=== PATIENT | female | born 1980 | race Caucasian/White ===

== ENCOUNTER 2017-11-28 10:57 | Outpatient (RCR) | payer OTHER ==
[2017-11-15 09:20] VITALS: BP 144/108
[2017-11-15 09:39] LABS: PLATELET COUNT, AUTOMATED 201 K/uL (150-450)
[~2017-11-28 10:57] MED LIST: CALC-521 PO; DESO1TAB41 PO; LEVO200T44 PO; METO50TA19 PO; SERT-181 PO
[2017-11-28 11:01] VITALS: BP 147/95
--- NOTE | 2017-11-30 07:19 | [facility] ONCOLOGY NOTE ---
EVENT DATE: November 28, 2017 CHIEF COMPLAINT/REASON FOR VISIT The patient is a pleasant 37-year-old female with iron deficiency anemia as well as vitamin D deficiency here for followup. HISTORY OF PRESENT ILLNESS The patient returns. She had two doses of Injectafer in December 2016 due to iron malabsorption and poor tolerance of oral iron. With that she felt extremely well. She does have reasons for fatigue besides this, including a history of thyroid cancer surgery and replacement, vitamin D deficiency, depression, obstructive sleep apnea. She felt much better after the iron, as I believe it was the main contributor at that time. At this time, her ferritin is normal in the 60's, and I do not believe it is contributing significantly. Her vitamin D level is quite low at 22, and she has recently stopped supplementation for this. She plans to restart. No other new issues today. PAST MEDICAL/SURGICAL HISTORY 1. Postsurgical hypothyroidism. 2. Thyroid cancer, status post resection, cured in 2002. 3. Depression. 4. Severe iron deficiency anemia due to malabsorption. 5. Vitamin D deficiency. 6. Obstructive sleep apnea, on CPAP. SOCIAL HISTORY The patient has presented by herself. 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 FAMILY HISTORY Noncontributory. REVIEW OF SYSTEMS CONSTITUTIONAL: No fevers, chills, fatigue of concern. She does have some fatigue now, but her iron level is normal. HEENT: No headache or vision changes. CARDIOVASCULAR: No chest pain, dyspnea on exertion, edema. RESPIRATORY: No shortness of breath, wheeze, cough. GI: No nausea, vomiting. : No dysuria or hematuria. MUSCULOSKELETAL: No weakness or joint pain. PSYCHIATRIC: History of depression, may actually have been improved with the iron replacement. No anxiety of concern. SKIN: No concerning rashes or lesions. LYMPHATIC: No concerning lumps or bumps. NEUROLOGIC: No deficits. The remainder of the 14-point review of systems is otherwise negative. PHYSICAL EXAMINATION VITAL SIGNS: Blood pressure 147/95 with plans to follow up with Ms. Luu. Pulse 72, respiratory rate 18, temperature 97.5 Fahrenheit. Oxygen saturation 91% on room air. Weight 184.2 kg. Pain 0/10, fatigue 0/10. GENERAL: Stable condition, resting comfortably in the chair. HEENT: Normocephalic, atraumatic. CARDIOVASCULAR: Regular rate and rhythm. LUNGS: Clear. No respiratory distress. SKIN: No concerning lesions. EXTREMITIES: No clubbing, cyanosis or edema. Remainder of physical exam unremarkable and otherwise deferred due to amount of time spent in counseling and coordination of care. IMPRESSION AND PLAN Patient is a pleasant 37-year-old female with the followin. Iron deficiency anemia due to malabsorption and intolerance of p.o. iron. 2. Obstructive sleep apnea on CPAP. 3. Postsurgical hypothyroidism due to thyroid cancer. 4. History of vitamin D deficiency. Her iron replacement is currently excellent. We will see her labs back in approximately six months. She had stopped the vitamin D supplementation. I recommend she resume that. It may be contributing to her fatigue. I advised her to call if she feels the fatigue worsens in the interim, and we could recheck her labs sooner. No other issues today. She agrees to follow up with her primary care provider regarding her blood pressure. I answered all of her questions today. Billing: Return visit level 3. Total time 20 minutes, counseling time 15. MTDD
== END 2018-01-13 16:15 | disposition home or self-care (01) ==
LOC: ONC 10:57
PROVIDERS: ATTEND Nurse Practitioner Psychiatric/Mental Health
DX: D46.4 Refractory anemia, unspecified (principal); E55.9 Vitamin D deficiency, unspecified; G47.33 Obstructive sleep apnea (adult) (pediatric); E89.0 Postprocedural hypothyroidism
CPT/HCPCS: 36415; 82306; 82728; 85025; 99212

== ENCOUNTER → 2018-04-28 | Outpatient (CLI) | payer OTHER | LOC: LAB 08:10 | PROVIDERS: ATTEND Internal Medicine Endocrinology, Diabetes & Metabolism | DX: E89.0 Postprocedural hypothyroidism (principal); C73 Malignant neoplasm of thyroid gland | CPT/HCPCS: 36415; 82310; 82374; 82435; 82565; 82947; 84132; 84295; 84432; 84443; 84520; 86800 ==

== ENCOUNTER 2018-06-05 16:00 | Outpatient (RCR) | payer OTHER ==
[2018-06-01 13:20] LABS: PLATELET COUNT, AUTOMATED 196 K/uL (150-450)
[2018-06-01 16:00] VITALS: BP 153/103
[2018-06-05 16:05] VITALS: BP 149/93
--- NOTE | 2018-06-13 12:31 | SCH[facility]ER ONCOLOGY NOTE ---
EVENT DATE: June 05, 2018 CHIEF COMPLAINT/REASON FOR VISIT Ms. Magana is a pleasant 37-year-old with iron deficiency anemia as well as vitamin D deficiency here for followup. HISTORY OF PRESENT ILLNESS Molly returns. She last had two doses of Injectafer in December 2016 due to iron malabsorption and poor tolerance of oral iron. After that she felt quite well. She has multiple reasons for fatigue, however, with a history of thyroid cancer surgery with replacement, vitamin D deficiency, depression and obstructive sleep apnea. We spent much of the day today discussing sleep apnea. Overall, I am pleased with her labs. Her CBC looks excellent. Her vitamin D level is still borderline low at 29 but the ferritin is appropriate at 49. I do think she is going to need iron again in the future but hopefully it will be in the new year in 2019. I advised her to call if she has change in her energy between now and then. PAST MEDICAL/SURGICAL HISTORY 1. Postsurgical hypothyroidism. 2. Thyroid cancer, status post resection, cured in 2002. 3. Depression. 4. Severe iron deficiency anemia due to malabsorption. 5. Vitamin D deficiency. 6. Obstructive sleep apnea, on CPAP. SOCIAL HISTORY The patient has presented by herself. 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 FAMILY HISTORY Noncontributory. REVIEW OF SYSTEMS CONSTITUTIONAL: No fevers or chills. She does have some mild fatigue but it is much improved compared to early 2017. HEENT: No headache or vision changes. CARDIOVASCULAR: No chest pain, dyspnea on exertion, edema. RESPIRATORY: No shortness of breath, wheeze, cough. GI: No nausea, vomiting. MUSCULOSKELETAL: No weakness or joint pain. PSYCHIATRIC: History of depression. No anxiety. SKIN: No concerning rashes or lesions. LYMPHATIC: No concerning lumps or bumps. NEUROLOGIC: No deficits. The remainder of the 14-point review of systems is otherwise negative. PHYSICAL EXAMINATION GENERAL: Stable condition, resting comfortably in the chair. HEENT: Normocephalic, atraumatic. PSYCHIATRIC: Normal mood and affect. She is her usual cheery self today. Full physical exam deferred today due to amount of time spent in counseling and coordination of care. IMPRESSION AND PLAN Mr. Magana is a pleasant 37-year-old female with the followin. Iron deficiency anemia due to malabsorption and intolerance of p.o. iron. Her ferritin is fading but is currently at 49 and does not require replacement at this time. We would like to see her back in approximately six months. 2. Obstructive sleep apnea, on CPAP. I think this is helpful for her fatigue. 3. Postsurgical hypothyroidism due to thyroid cancer. 4. History of vitamin D deficiency. Her iron replacement is borderline. I recommend continued replacement. I answered all of her questions today. Billing: Return visit level 4. Total time 30 minutes, counseling time 20. MTDD
== END 2018-06-21 09:08 | disposition home or self-care (01) ==
LOC: ONC 16:00
PROVIDERS: ATTEND Internal Medicine
DX: D46.4 Refractory anemia, unspecified (principal)
CPT/HCPCS: 36415; 82652; 82728; 85025; 99212

== ENCOUNTER 2018-08-15 08:11 | Emergency (ER) | payer OTHER ==
[2018-08-15] MEDS ORDERED: BUPR-124 (08:19)
[2018-08-15 09:00] VITALS: BP 156/100
--- NOTE | 2018-08-15 09:00 | ER Report ---
History and Physical Time Seen By MD: 08:35 Hx. of Stated Complaint: PT REPORTS L JAW, NECK AND SHOULDER PAIN THAT STARTED TUESDAY HPI/ROS CHIEF COMPLAINT: Back pain HISTORY OF PRESENT ILLNESS: 27 f presents with back pain that is reproducible, starts at left shoulder blade, positional, with symptoms that radiate to l shoulder and to jaw. Patient states that symptoms have responded to massage and chiropractor, but continue and her friends have her concerned about cardiac disease because of the symptoms that radiate to the jaw. Pt denies chest pain, sob, presyncope, nausea, or other angina equivalents. She gets no symptoms on exertion. No leg swelling, fevers, chills. She does have hx of thyroid cx with hx of radiation, htn but no chol, no fam hx, no dm, no tobac use.She does take OCP's. REVIEW OF SYSTEMS: Constitutional: no fevers, chills Eyes: No discharge. ENT: No sore throat. Cardiovascular: No chest pain, no palpitations. Respiratory: No cough, no shortness of breath. Gastrointestinal: No abdominal pain, no vomiting. Genitourinary: No hematuria. Musculoskeletal: above Skin: No rashes. Neurological: No headache. Remainder of the 14 system rev: Yes Allergies: Coded Allergies: acetaminophen (Verified Allergy, Intermediate, HALLUCINATIONS, 08/15/18) Home Meds Reported Medications Bupropion Hcl (BUPROPION XL) 150 Mg Tab.er.24h, QDAY 08/15/18 Metoprolol Succinate (METOPROLOL SUCCINATE) 50 Mg Tab.er.24h, 1 TAB PO BID, TAB 06/20/17 Calcium Carbonate (TUMS) 300 Mg Tab.chew, 300 MG PO 3XW, TAB.CHEW 12/13/16 Desogestrel-Ethinyl Estradiol (RECLIPSEN) 1 Each Tablet, 1 EACH PO 12/13/16 Sertraline Hcl (SERTRALINE HCL) 100 Mg Tablet, 2 TAB PO QDAY, TAB 12/13/16 Levothyroxine Sodium (SYNTHROID) 200 Mcg Tablet, 275 MCG PO QDAY 12/13/16 Reviewed Nurses Notes: Yes Hx Smoking: No Exposure to Second Hand Smoke?: No Constitutional Vital Sign - Last 24 Hours 08/15/18 08/15/18 08/15/18 08/15/18 08:12 08:15 08:30 08:45 Temp 98.0 Pulse 66 65 64 Resp 18 12 24 B/P (MAP) 194/122 194/122 (146) 146/106 (119) Pulse Ox 94 90 O2 Delivery Room Air 08/15/18 09:00 B/P (MAP) 156/100 (118) Physical Exam General Appearance: The patient is alert, has no immediate need for airway protection and no signs of toxicity. Eyes: Pupils equal and round no pallor or injection. ENT, Mouth: Mucous membranes are moist. Respiratory: There are no retractions, lungs are clear to auscultation. Cardiovascular: Regular rate and rhythm. no m/r/g Gastrointestinal: Abdomen is soft and non tender, no masses, bowel sounds normal. Neurological: alert, oriented, moves all ext Skin: Warm and dry, no rashes. Musculoskeletal: Neck is supple non tender. Extremities are nontender, nonswollen and have full range of motion. left trapezius ttp that reproduces symptoms. DIFFERENTIAL DIAGNOSIS: After history and physical exam differential diagnosis was considered for acs, pe, ptx, pneumonia, aortic dissection or other emergent etiology, msk spasm/nerve compression Medical Decision Making EKG/Imaging EKG Interpretation 12 lead EKG: Rhythm: Normal sinus rhythm [place]: Normal QRS: Normal ST segments: Normal Monitor Interpretation: Normal Sinus Rhythm ED Course/Re-evaluation ED Course Patient presents with sgs/symptoms most consistent with muscle spasm/peripheral nerve compression, however is concerned about acs. Her presenting c/o are very low pretest prob for acute acs, though she does have rf's for cad. Therefore, after evaluation and discussion with her, I recommended EKG; if normal, this further lowers acs likelihood (somewhat). However, does not change cad likelihood. Therefore, as pt has nl ekg, we agreed that further w/up was not indicated at this point, however, it is very reasonable to f/u with pcm for risk stratification and rtn for any concerning sypmtoms. Pt very comfortable with this plan and ambulates without discomfort on d/c. Decision to Disposition Date: Aug 15, 2018 Decision to Disposition Time: 09:00 Depart Departure Latest Vital Signs Vital Signs Date Time Temp Pulse Resp B/P (MAP) Pulse Ox O2 Delivery O2 Flow Rate FiO2 08/15/18 09:00 156/100 (118) 08/15/18 08:45 64 24 08/15/18 08:15 90 11/20/18 08:12 98.0 Room Air Impression: Primary Impression: Muscle strain Condition: Condition Unchanged Disposition: HOME OR SELF-CARE Referrals: GEOVANNA ARGUETA (PCP) Additional Instructions: As we discussed, today's symptoms are very unlikely to be due to your heart. Ho wever, due to your risk factors for potential heart disease and your concern, I recommend you follow up this week with your primary doctor for consideration of risk stratification. Please return for chest pain, shortness of breath, or new, concerning symptoms. HECTOR OTTO MD Aug 15, 2018 09:00
--- NOTE | 2018-08-15 09:09 | EKG ---
FACILITY: [facility] PATIENT NAME: MARY JAY : [id number] MR: [id number] V: [id number] EXAM DATE: ORDERING PHYSICIAN: HECTOR OTTO TECHNOLOGIST: JOE Test Reason : SHOULDER PAIN Blood Pressure : / mmHG Vent. Rate : 062 BPM Atrial Rate : 062 BPM P-R Int : 184 ms QRS Dur : 086 ms QT Int : 450 ms P-R-T Axes : 035 004 021 degrees QTc Int : 456 ms Normal sinus rhythm Minimal voltage criteria for LVH, may be normal variant No ST-T abnormalities No previous ECGs available Confirmed by BRUNO RYAN ([id number]) on 08/15/2018 6:02:07 PM Referred By: CLARITA Confirmed By:BRUNO RYAN
== END 2018-08-15 09:08 | disposition home or self-care (01) ==
LOC: ER 08:30
DX: S46.812A Strain of other muscles, fascia and tendons at shoulder and upper arm level, left arm, initial encounter (principal)
CPT/HCPCS: 93005; 99283

== ENCOUNTER 2018-08-19 20:10 | Emergency (ER) | payer OTHER ==
[~2018-08-19 20:10] MED LIST changes: +BUPR-124
--- NOTE | 2018-08-19 20:30 | ER Report ---
History and Physical Time Seen By MD: 20:20 Hx. of Stated Complaint: PATIENT HAD A FALL, HAVING LEFT SHOULDER PAIN, PATIENT STATES IT STARTED HURTING AFTER SHE GOT HOME, SHE WAS WASHING HER HANDS, HER SHOULDER WAS MAKING A "CRUNCHING" SOUND. HPI/ROS CHIEF COMPLAINT: shoulder pain after a fall HISTORY OF PRESENT ILLNESS: This is a 37 year old female. She slipped on the ice while stepping onto a curb today, fell forward with arms outstretched. Has some shoulder pain. Upon returning home, had worsening pain and two episodes where the shoulder locked up. She was able to get it unlocked and moving, but felt pain and a grinding sensation. Has normal sensation in the arm and no problems distally. She feel in the upper trapezius and shoulder blade area. No chest pain or shortness of breath. No neck pain. Allergies: Coded Allergies: acetaminophen (Verified Allergy, Intermediate, HALLUCINATIONS, 08/19/18) Home Meds Reported Medications Bupropion Hcl (BUPROPION XL) 150 Mg Tab.er.24h, QDAY 08/15/18 Metoprolol Succinate (METOPROLOL SUCCINATE) 50 Mg Tab.er.24h, 1 TAB PO BID, TAB 06/20/17 Calcium Carbonate (TUMS) 300 Mg Tab.chew, 300 MG PO 3XW, TAB.CHEW 12/13/16 Desogestrel-Ethinyl Estradiol (RECLIPSEN) 1 Each Tablet, 1 EACH PO 12/13/16 Sertraline Hcl (SERTRALINE HCL) 100 Mg Tablet, 2 TAB PO QDAY, TAB 12/13/16 Levothyroxine Sodium (SYNTHROID) 200 Mcg Tablet, 275 MCG PO QDAY 12/13/16 Reviewed Nurses Notes: Yes Hx Smoking: No Exposure to Second Hand Smoke?: No Constitutional Vital Sign - Last 24 Hours 08/19/18 08/19/18 08/19/18 20:14 22:04 22:10 Temp 98.1 Pulse 81 82 85 Resp 20 16 B/P (MAP) 190/121 173/119 (137) 162/90 (114) Pulse Ox 94 90 93 O2 Delivery Room Air Room Air Physical Exam General Appearance: Alert, tearful and distress. Eyes: Pupils equal and round no injection. ENT: Moist mucous membranes. Neck: Neck is supple and non tender. Respiratory: Chest is non tender, breathing easily. Cardiac: regular rate and rhythm. Normal pulses and cap refill in left upper extremity. Neuro: Oriented. Normal sensation. Musculoskeletal: No pain over clavicle. Has some pain over spine of the scapula. No pain over humerus or anywhere in the upper extremity. Positive pain with internal rotation and resisted internal rotation. No pain with resisted forward flexion. Some pain with abduction. Cervical and thoracic spine are nontender. Skin: No rashes or lesions. DIFFERENTIAL DIAGNOSIS: After history and physical exam differential diagnosis was considered for shoulder injury with pain and locking superior shoulder and scapula. Medical Decision Making EKG/Imaging Imaging LEFT SHOULDER: Indication: Injury. Technique: 2 views were obtained. Comparison: None. Findings: There is no evidence of fracture, subluxation, or other acute deformity. There is mild spur formation on the acromion. There is uniform mineralization of the skeletal structures. No periarticular calcifications or soft tissue abnormalities are identified. IMPRESSION: No acute deformity. Report Dictated By: Marcell Herbert MD at 08/19/2018 9:46 PM ED Course/Re-evaluation ED Course Shoulder imaging negative. Recommended conservative treatment in my discussion with the patient. See instructions below. Decision to Disposition Date: Aug 19, 2018 Decision to Disposition Time: 21:58 Depart Departure Latest Vital Signs Vital Signs Date Time Temp Pulse Resp B/P (MAP) Pulse Ox O2 Delivery O2 Flow Rate FiO2 08/19/18 22:10 85 16 162/90 (114) 93 Room Air 08/19/18 20:14 98.1 Impression: Primary Impression: Left shoulder strain Condition: Improved Disposition: HOME OR SELF-CARE Referrals: GEOVANNA ARGUETA (PCP) Patient Instructions: Shoulder Sprain (ED) Additional Instructions: Ibuprofen 200mg over the counter tablets, take 4 tablets three times a day with food. Apply ice 20 minutes every 1-2 hours while awake. Use a sling with rest. Begin gentle range of motion exercises after a day or 2 for the starting to feel better. If not improving, see orthopedic surgery for further evaluation. Problem Qualifiers Primary Impression: Left shoulder strain Encounter type: initial encounter Qualified Codes: S46.912A - Strain of unspecified muscle, fascia and tendon at shoulder and upper arm level, left arm, initial encounter CLIFFORD AMES MD Aug 19, 2018 20:30
--- NOTE | 2018-08-19 21:51 | RADIOLOGY IMAGING REPORT ---
FACILITY: [facility] PATIENT NAME: Molly Magana : 1980 MR: [id number] V: [id number] EXAM DATE: ORDERING PHYSICIAN: CLIFFORD AMES TECHNOLOGIST: Location: [facility] [place] Patient: Molly Magana : 1980 Visit/Account:[id number] Date of Sevice: 08/19/2018 LEFT SHOULDER: Indication: Injury. Technique: 2 views were obtained. Comparison: None. Findings: There is no evidence of fracture, subluxation, or other acute deformity. There is mild spur formation on the acromion. There is uniform mineralization of the skeletal structures. No periarticu lar calcifications or soft tissue abnormalities are identified. IMPRESSION: No acute deformity. Report Dictated By: Marcell Herbert MD at 08/19/2018 9:46 PM Report E-Signed By: Marcell Herbert MD at 08/19/2018 9:47 PM WSN:[id number]
[2018-08-19 22:10] VITALS: BP 162/90
== END 2018-08-19 22:08 | disposition home or self-care (01) ==
LOC: ER 20:27
DX: S46.912A Strain of unspecified muscle, fascia and tendon at shoulder and upper arm level, left arm, initial encounter (principal); W00.0XXA Fall on same level due to ice and snow, initial encounter
CPT/HCPCS: 73030; 99283; A4565

== ENCOUNTER 2018-08-29 08:22 | Outpatient (RCR) | payer OTHER ==
[2018-08-29 09:15] VITALS: BP 171/101
[2018-08-29 09:51] LABS: PLATELET COUNT, AUTOMATED 198 K/uL (150-450)
== END 2018-10-16 15:45 | disposition home or self-care (01) ==
LOC: ONC 08:22
PROVIDERS: ATTEND Internal Medicine
DX: D46.4 Refractory anemia, unspecified (principal)
CPT/HCPCS: 36415; 82728; 85025

== ENCOUNTER 2018-11-23 08:00 | Outpatient (RCR) | payer OTHER ==
[2018-10-30 15:01] VITALS: BP 149/92
--- NOTE | 2018-10-31 03:14 | ONCOLOGY FOLLOW UP NOTE ---
EVENT DATE: October 30, 2018 CHIEF COMPLAINT/REASON FOR VISIT Ms. Magana is a very pleasant 38-year-old female with iron-deficiency anemia and vitamin D deficiency, who is here for followup. HISTORY OF PRESENT ILLNESS Molly returns. Her last injection of Injectafer was in December 2016 due to malabsorption of iron and poor tolerance of p.o. iron. After that, she felt quite well. She has multiple reasons for fatigue, including thyroid cancer surgery with replacement, vitamin D deficiency, depression, and obstructive sleep apnea. However, she has noted a significant change in her fatigue since last July. This correlates with a slow and steady drop with her ferritin as well. It is now down to 33 two months ago, and she continues to feel worse. I think it is time for iron again. It is typical for patients with poor absorption of iron to need infusions every one to two years. She is having rare menstrual cycles due to taking her medications back to back. No other new issues today other than the fatigue. No other bleeding. No nosebleeds, hemorrhoid bleeding, dark stools, or other concerns there. She has never had a colonoscopy before, and we would need to consider it if she has a hastening of her iron loss or signs of bleeding. PAST MEDICAL/SURGICAL HISTORY 1. Postsurgical hypothyroidism. 2. Thyroid cancer, status post resection, cured in 2002. 3. Depression. 4. Severe iron deficiency anemia due to malabsorption. 5. Vitamin D deficiency. 6. Obstructive sleep apnea, on CPAP. SOCIAL HISTORY The patient has presented by herself. 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 FAMILY HISTORY Noncontributory. REVIEW OF SYSTEMS CONSTITUTIONAL: No fevers or chills. Positive fatigue, which is worsening. HEENT: No headache or vision changes. CARDIOVASCULAR: No chest pain, dyspnea on exertion, edema. RESPIRATORY: No shortness of breath, wheeze, cough. GI: No nausea, vomiting. No bright red blood per rectum or melena. : No dysuria, hematuria. MUSCULOSKELETAL: No weakness or joint pain. PSYCHIATRIC: No anxiety or depression. SKIN: No concerning rashes or lesions. LYMPHATIC: No concerning lumps or bumps. NEUROLOGIC: No deficits. The remainder of the 14-point review of systems is otherwise negative. PHYSICAL EXAMINATION VITAL SIGNS: Blood pressure 149/92, pulse 69, respiratory rate 18, temperature 95.5 Fahrenheit, oxygen saturation 92% on room air. Weight 192.9 kg. Pain 0/10, fatigue 5/10. GENERAL: Stable condition, resting comfortably in the chair. HEENT: Normocephalic, atraumatic. CARDIOVASCULAR: Deferred. PSYCHIATRIC: Normal mood and affect. Mildly fatigued appearing. Full physical exam deferred today due to amount of time spent in counseling and coordination of care, and discussing iron and consideration of a colonoscopy. IMPRESSION/REPORT/PLAN Ms. Magana is a pleasant 37-year-old female with the followin. Iron-deficiency anemia due to malabsorption and intolerance of p.o. iron. Her ferritin is slowly fading but is now below 30 again, and she requires replacement. We would like to see her every six months. I advised that I would recommend getting a colonoscopy either at age 50 or slightly earlier. She has multiple reasons for iron deficiency, however. She has poor vitamin D absorption as well, for example. She takes an acid david regularly. 2. Obstructive sleep apnea, on CPAP. I think this is important for her fatigue as well. 3. Postsurgical hypothyroidism due to thyroid cancer. 4. History of vitamin D deficiency. I answered all of her questions today. BILLING Return visit level 4. Total time 30 minutes, counseling time 20. MTDD
[2018-11-16 08:53] VITALS: BP 154/97
[2018-11-16] MEDS: NS(*) 0.9% 100 ML BAG 100 ML IVPB PRN (09:08)
[2018-11-16 09:59] VITALS: BP 136/84
[~2018-11-23 08:00] MED LIST changes: +DEXTROSE 5%(*) 100 ML BAG 100 ML IVPB PRN; +FERRIC CARBOXY 750 MG SDV 750 MG in NS(*) 0.9% 250 ML BAG 250 ML IVP ONE; +LIDOCAINE/SOD BICARB 8.4% SYR ID PRN
[2018-11-23 08:07] VITALS: BP 159/88
[2018-11-23] MEDS ORDERED: FERRIC CARBOXY 750 MG SDV 750 MG in NS(*) 0.9% 250 ML BAG 250 ML IVPB ONE (08:30)
[2018-11-23] MEDS: NS(*) 0.9% 100 ML BAG 100 ML IVPB PRN (08:46)
[2018-11-23 08:54] VITALS: BP 129/88
== END 2019-01-28 ==
LOC: SPU 08:00
PROVIDERS: ATTEND Internal Medicine
DX: D46.4 Refractory anemia, unspecified (principal); E55.9 Vitamin D deficiency, unspecified; R53.83 Other fatigue; F32.9 Major depressive disorder, single episode, unspecified; G47.33 Obstructive sleep apnea (adult) (pediatric); E89.0 Postprocedural hypothyroidism; Z85.850 Personal history of malignant neoplasm of thyroid
CPT/HCPCS: 96365; 99212; J1439; J7050

== ENCOUNTER → 2019-05-07 | Outpatient (CLI) | payer OTHER ==
[~2019-05-07] MED LIST changes: -DEXTROSE 5%(*) 100 ML BAG 100 ML IVPB PRN; -FERRIC CARBOXY 750 MG SDV 750 MG in NS(*) 0.9% 250 ML BAG 250 ML IVP ONE; -LIDOCAINE/SOD BICARB 8.4% SYR ID PRN
== END ==
LOC: LAB 07:51
PROVIDERS: ATTEND Internal Medicine Endocrinology, Diabetes & Metabolism
DX: E89.0 Postprocedural hypothyroidism (principal)
CPT/HCPCS: 36415; 82310; 82374; 82435; 82565; 82947; 84132; 84295; 84432; 84443; 84520; 86800